=== PATIENT | female | born 1940 | race Hispanic/Latino ===

== ENCOUNTER → 2021-06-02 | Outpatient (CLI) | payer MEDICARE | LOC: RAD 11:24 | PROVIDERS: ATTEND Internal Medicine | DX: M47.16 Other spondylosis with myelopathy, lumbar region (principal) | CPT/HCPCS: 72110 ==

== ENCOUNTER → 2023-12-06 | Outpatient (RCR) | payer MEDICARE | LOC: RESP 09:55 → EDSTATUS 10:00 | DX: R06.00 Dyspnea, unspecified (principal); C34.12 Malignant neoplasm of upper lobe, left bronchus or lung | CPT/HCPCS: 94799 ==

== ENCOUNTER 2024-01-09 13:34 | Outpatient (RCR) | payer MEDICARE | END 2024-02-05 | LOC: RESP 13:34 | PROVIDERS: ATTEND Internal Medicine Critical Care Medicine | DX: R06.00 Dyspnea, unspecified (principal); C34.12 Malignant neoplasm of upper lobe, left bronchus or lung | CPT/HCPCS: 94626 ×8; G0238 ×8 ==

== ENCOUNTER 2024-02-06 13:42 | Outpatient (RCR) | payer MEDICARE | END 2024-03-07 | LOC: RESP 13:42 | PROVIDERS: ATTEND Internal Medicine Critical Care Medicine | DX: R06.00 Dyspnea, unspecified (principal); C34.12 Malignant neoplasm of upper lobe, left bronchus or lung; R68.89 Other general symptoms and signs | CPT/HCPCS: 94626 ×3; G0238 ×3 ==

== ENCOUNTER 2024-04-04 09:57 | Outpatient (RCR) | payer MEDICARE | END 2024-04-07 | LOC: RESP 09:57 | DX: R06.00 Dyspnea, unspecified (principal); C34.12 Malignant neoplasm of upper lobe, left bronchus or lung; R68.89 Other general symptoms and signs | CPT/HCPCS: 94626 ×6; G0238 ×6 ==

== ENCOUNTER 2024-05-02 10:00 | Outpatient (RCR) | payer MEDICARE | END 2024-05-07 | LOC: RESP 10:00 | PROVIDERS: ATTEND Nurse Practitioner | DX: R06.00 Dyspnea, unspecified (principal); C34.12 Malignant neoplasm of upper lobe, left bronchus or lung; R68.89 Other general symptoms and signs; Z85.3 Personal history of malignant neoplasm of breast | CPT/HCPCS: 94626 ×6; G0238 ×6 ==

== ENCOUNTER 2024-06-06 10:12 | Outpatient (RCR) | payer MEDICARE | END 2024-06-07 | LOC: RESP 10:12 | PROVIDERS: ATTEND Internal Medicine | DX: C34.12 Malignant neoplasm of upper lobe, left bronchus or lung (principal); R06.00 Dyspnea, unspecified; R68.89 Other general symptoms and signs | CPT/HCPCS: 94626 ×4; G0238 ×4 ==

== ENCOUNTER → 2025-01-17 | Outpatient (REF) | payer MEDICARE | LOC: MRI 12:25 | PROVIDERS: ATTEND Internal Medicine | DX: M47.16 Other spondylosis with myelopathy, lumbar region (principal); M47.12 Other spondylosis with myelopathy, cervical region; M47.14 Other spondylosis with myelopathy, thoracic region | CPT/HCPCS: 72141; 72146; 72148 ==